=== PATIENT | female | born 1995 | race Two or more races ===

== ENCOUNTER 2020-03-06 15:15 | Observation (INO) | payer MEDICAID, SELFPAY ==
[2020-03-05] MEDS: LACTATED RINGERS 1,000 ML IV SCH (15:55)
[~2020-03-06] VITALS: Ht 157.5 cm; Wt 104.3 kg
[2020-03-06] MEDS ORDERED: PNV91TAB10 PO (15:35)
[2020-03-06 16:19] LABS: BASOPHILS % (AUTO) 0.2 % (0.0-2.0); EOSINOPHILS % (AUTO) 0.2 % (0.0-4.0); HEMATOCRIT 36.3 % (36-48); HEMOGLOBIN 11.8 g/dL (12.0-16.0); LYMPHOCYTES # (AUTO) 2.7 K/uL (2.5-16.5); MEAN CORPUSCULAR HEMOGLOBIN 26 pg (27-31); MEAN CORPUSCULAR HGB CONC 33 g/dL (33-37); MEAN CORPUSCULAR VOLUME 78.2 fL (80-94); MONOCYTES # (AUTO) 0.6 K/uL (0.8-1.0); MONOCYTES % (AUTO) 5.7 % (1.7-9.3); NEUTROPHILS # (AUTO) 7.5 K/uL (1.8-7.7); NEUTROPHILS % (AUTO) 68.9 % (42.2-75.2); PLATELET COUNT (AUTO) 179 K/uL (140-450); RED BLOOD CELL COUNT(AUTO) 4.64 MIL/uL (4.20-5.40); RED CELL DISTRIBUTION WIDTH 16.4 % (11.6-13.7); WHITE BLOOD COUNT (AUTO) 10.9 K/uL (4.8-10.8)
[2020-03-06 16:43] LABS: ALBUMIN 2.8 g/dL (3.4-5.0); ANION GAP 13.7 (8-16); CARBON DIOXIDE 22.3 mmol/L (21-32); CREATININE 0.6 mg/dL (0.6-1.3); THYROID STIMULATING HORMONE 1.15 uIU/mL (0.34-3.74); TOTAL BILIRUBIN 0.3 mg/dL (0.0-1.0)
[2020-03-06] MEDS: LACTATED RINGERS 1,000 ML IV SCH (16:45)
[2020-03-06 19:01] LABS: APPEARANCE,URINE HAZY (CLEAR); BILIRUBIN,URINE NEGATIVE (NEGATIVE); BLOOD, URINE NEGATIVE (NEGATIVE); COLOR,URINE YELLOW (YELLOW); LEUKOCYTE ESTERASE ,URINE NEGATIVE (NEGATIVE); NITRITE, URINE NEGATIVE (NEGATIVE); PH,URINE 6.5 (5.0-9.0); UGLUCOSE NEGATIVE (NEGATIVE)
== END 2020-03-06 20:10 | disposition home or self-care (01) ==
LOC: MLD 15:15
PROVIDERS: ADMIT Obstetrics & Gynecology; ATTEND Obstetrics & Gynecology
DX: O26.893 Other specified pregnancy related conditions, third trimester (principal); Z20.828 Contact with and (suspected) exposure to other viral communicable diseases; R42 Dizziness and giddiness; O21.2 Late vomiting of pregnancy; R51.9 Headache, unspecified; O26.813 Pregnancy related exhaustion and fatigue, third trimester; O34.219 Maternal care for unspecified type scar from previous cesarean delivery; O32.1XX0 Maternal care for breech presentation, not applicable or unspecified; O24.410 Gestational diabetes mellitus in pregnancy, diet controlled; Z3A.33 33 weeks gestation of pregnancy
CPT/HCPCS: 36415; 59025; 80053; 81003; 84443; 85025; 87426; 96360; 96361; G0378; J7120

== ENCOUNTER 2020-04-02 13:50 | Outpatient (CLI) | payer MEDICAID, SELFPAY ==
[~2020-04-02 13:50] MED LIST: PNV91TAB10 PO
== END 2020-04-02 23:59 | disposition home or self-care (01) ==
LOC: MLB 13:50 → EDSTATUS 04-07 14:06
PROVIDERS: ATTEND Obstetrics & Gynecology
DX: Z20.828 Contact with and (suspected) exposure to other viral communicable diseases (principal)
CPT/HCPCS: U0003

== ENCOUNTER 2020-04-06 22:40 | Inpatient (IN) | payer MEDICAID, SELFPAY ==
[~2020-04-06] VITALS: Ht 157.5 cm; Wt 105.2 kg
[2020-04-06] MEDS ORDERED: CITRIC ACID/SODIUM CITRATE 30 ML UDC PO SCH (23:05)
[2020-04-06 23:28] VITALS: BP 121/62
[2020-04-06 23:36] LABS: APPEARANCE,URINE CLOUDY (CLEAR); BILIRUBIN,URINE NEGATIVE (NEGATIVE); BLOOD, URINE NEGATIVE (NEGATIVE); COLOR,URINE YELLOW (YELLOW); LEUKOCYTE ESTERASE ,URINE NEGATIVE (NEGATIVE); NITRITE, URINE NEGATIVE (NEGATIVE); UGLUCOSE NEGATIVE (NEGATIVE)
[2020-04-06 23:39] LABS: BASOPHILS # (AUTO) 0.1 K/uL (0.00-0.22); BASOPHILS % (AUTO) 0.6 % (0.0-2.0); EOSINOPHILS % (AUTO) 0.4 % (0.0-4.0); HEMOGLOBIN 11.4 g/dL (12.0-16.0); LYMPHOCYTES # (AUTO) 2.6 K/uL (2.5-16.5); LYMPHOCYTES % (AUTO) 26.5 % (20.5-51.1); MEAN CORPUSCULAR HEMOGLOBIN 25 pg (27-31); MEAN CORPUSCULAR HGB CONC 33 g/dL (33-37); MEAN CORPUSCULAR VOLUME 76.9 fL (80-94); MONOCYTES # (AUTO) 0.4 K/uL (0.8-1.0); MONOCYTES % (AUTO) 4.4 % (1.7-9.3); NEUTROPHILS # (AUTO) 6.6 K/uL (1.8-7.7); NEUTROPHILS % (AUTO) 68.1 % (42.2-75.2); PLATELET COUNT (AUTO) 157 K/uL (140-450); RED BLOOD CELL COUNT(AUTO) 4.55 MIL/uL (4.20-5.40); RED CELL DISTRIBUTION WIDTH 16.9 % (11.6-13.7); WHITE BLOOD COUNT (AUTO) 9.7 K/uL (4.8-10.8)
[2020-04-06 23:49] LABS: ALBUMIN 2.4 g/dL (3.4-5.0); ANION GAP 19.7 (8-16); CARBON DIOXIDE 19.2 mmol/L (21-32); CREATININE 0.8 mg/dL (0.6-1.3); POTASSIUM 3.9 mmol/L (3.5-5.1); TOTAL BILIRUBIN 0.2 mg/dL (0.0-1.0)
[2020-04-06] MEDS: LACTATED RINGERS 1,000 ML IV SCH (23:52)
[2020-04-07 00:04] LABS: CALCIUM OXALATE CRYSTALS,UR 0-2 /HPF (None Seen); RBC,URINE 0-5 /HPF (0-5)
[2020-04-07] MEDS ORDERED: ceFAZolin 1,000 MG VIAL ONE (05:56)
[2020-04-07] MEDS: LACTATED RINGERS 1,000 ML IV SCH (05:58)
[2020-04-07] MEDS ORDERED: CITRIC ACID/SODIUM CITRATE 30 ML UDC ONE (06:56)
[2020-04-07] MEDS ORDERED: fentaNYL citrate 0.05 MG/ML VIAL ONE ×2 (07:03→07:42)
[2020-04-07] MEDS ORDERED: MIDAZOLAM 2 MG/2 ML VIAL ONE ×2 (07:04→07:42)
[2020-04-07] MEDS ORDERED: MORPHINE PRES FREE 10 MG/10 ML AMP IV ONE ×2 (07:04→07:42)
[2020-04-07] MEDS ORDERED: BLOOD GLUCOSE MONITORING 1 DEV DEV FS ONE (07:30)
[2020-04-07] MEDS ORDERED: diphenhydrAMINE 50 MG/ML VIAL IVP PRN ×2 (07:30→08:30)
[2020-04-07] MEDS ORDERED: ONDANSETRON 4 MG/2 ML VIAL IVP PRN ×2 (07:30→08:30)
[2020-04-07] MEDS ORDERED: OXYTOCIN 20 UNITS in LACTATED RINGERS 1,000 ML IV SCH ×2 (07:30→17:05)
[2020-04-07] MEDS ORDERED: MEPERIDINE 25 MG/ML SYR IVP PRN (07:30)
[2020-04-07] MEDS ORDERED: fentaNYL citrate 0.05 MG/ML VIAL IVP PRN (07:30)
[2020-04-07] MEDS ORDERED: ONDANSETRON 4 MG/2 ML VIAL ONE (07:42)
[2020-04-07] MEDS ORDERED: DEXAMETHASONE 4 MG/ML VIAL ONE (07:42)
[2020-04-07] MEDS ORDERED: METOCLOPRAMIDE 10 MG/2 ML INJ VIAL ONE (07:42)
[2020-04-07] MEDS ORDERED: PHENYLEPHRINE 10 MG/ML VIAL ONE (07:42)
[2020-04-07] MEDS ORDERED: NALOXONE 0.4 MG/ML VIAL IVP PRN ×2 (08:30)
[2020-04-07] MEDS ORDERED: NALBUPHINE 10 MG/ML AMP IVP PRN (08:30)
[2020-04-07] MEDS ORDERED: OXYTOCIN 20 UNITS/LR PREMIX 1,000 ML IV ONE ×2 (09:00→17:52)
--- NOTE | 2020-04-07 09:02 | NUR ---
PATIENT HAS BEEN SCREENED AND CATEGORIZED LOW NUTRITION RISK. PATIENT WILL BE SEEN WITHIN 7 DAYS OF ADMISSION. 04/13/[address]
[2020-04-07] MEDS: KETOROLAC 30 MG/ML VIAL IM/IVP SCH ×2 (13:36→19:38)
[2020-04-07] MEDS ORDERED: oxyCODONE/APAP 5/325 MG 1 TAB TAB PO PRN ×2 (17:05)
[2020-04-07] MEDS ORDERED: MEASLES, MUMPS, AND RUBELLA 1 VIAL SQVAC PRN (17:05)
[2020-04-07] MEDS ORDERED: METHYLERGONOVINE 0.2 MG/ML AMP IM PRN (17:05)
[2020-04-07] MEDS ORDERED: SIMETHICONE 80 MG TAB.CHEW PO PRN (17:05)
[2020-04-07] MEDS ORDERED: TEMAZEPAM 15 MG CAP PO PRN (17:05)
[2020-04-07] MEDS: DOCUSATE SOD/SENNA 50/8.6 MG 1 TAB PO SCH (21:00)
[2020-04-08] MEDS: KETOROLAC 30 MG/ML VIAL IM/IVP SCH (01:40)
[2020-04-08] MEDS ORDERED: OXYTOCIN 20 UNITS/LR PREMIX 1,000 ML IV ONE (01:49)
[2020-04-08] MEDS ORDERED: HYDROmorphone 1 MG/ML AMP IVP PRN (02:00)
[2020-04-08 06:01] LABS: BASOPHILS % (AUTO) 0.3 % (0.0-2.0); EOSINOPHILS % (AUTO) 0.4 % (0.0-4.0); HEMATOCRIT 29.3 % (36-48); HEMOGLOBIN 9.4 g/dL (12.0-16.0); LYMPHOCYTES % (AUTO) 26.6 % (20.5-51.1); MEAN CORPUSCULAR HEMOGLOBIN 25 pg (27-31); MEAN CORPUSCULAR HGB CONC 32 g/dL (33-37); MONOCYTES # (AUTO) 0.7 K/uL (0.8-1.0); MONOCYTES % (AUTO) 6.6 % (1.7-9.3); NEUTROPHILS # (AUTO) 7.4 K/uL (1.8-7.7); NEUTROPHILS % (AUTO) 66.1 % (42.2-75.2); PLATELET COUNT (AUTO) 136 K/uL (140-450); RED BLOOD CELL COUNT(AUTO) 3.75 MIL/uL (4.20-5.40); RED CELL DISTRIBUTION WIDTH 16.8 % (11.6-13.7); WHITE BLOOD COUNT (AUTO) 11.1 K/uL (4.8-10.8)
[2020-04-08] MEDS: IBUPROFEN 600 MG TAB PO PRN ×2 (08:18→18:07)
[2020-04-08] MEDS: DOCUSATE SOD/SENNA 50/8.6 MG 1 TAB PO SCH (20:35)
[2020-04-08] MEDS ORDERED: CAMERA MC ONE (21:56)
[2020-04-08] MEDS ORDERED: FLU VACCINE QS2020-21 0.5 ML SYR IMVAC PRN (22:05)
[2020-04-09] MEDS: IBUPROFEN 600 MG TAB PO PRN (09:27)
== END 2020-04-09 13:15 | disposition home or self-care (01) | DRG 540 ==
LOC: MLD 22:40 → OBSVTOIN 04-07 00:32 → MFCC 04-07 09:11
PROVIDERS: ADMIT Obstetrics & Gynecology; ATTEND Obstetrics & Gynecology
PROC: 3E0234Z Introduction of Serum, Toxoid and Vaccine into Muscle, Percutaneous Approach (ICD-10-PCS; 2020-04-07)
PROC: 3E0134Z Introduction of Serum, Toxoid and Vaccine into Subcutaneous Tissue, Percutaneous Approach (ICD-10-PCS; 2020-04-07)
PROC: 10D00Z1 Extraction of Products of Conception, Low, Open Approach (ICD-10-PCS; principal; 2020-04-07 07:30)
DX: O24.420 Gestational diabetes mellitus in childbirth, diet controlled (principal); O69.81X0 Labor and delivery complicated by cord around neck, without compression, not applicable or unspecified; O34.211 Maternal care for low transverse scar from previous cesarean delivery; Z37.0 Single live birth; Z3A.38 38 weeks gestation of pregnancy; Z23 Encounter for immunization
CPT/HCPCS: G0378 ×2; 36415; 51702; 80053; 81001; 82948; 85025; 86592; 86886; 86900; 86901; 87081; 87086; 87653-90; 90707; 90715; J0690; J1100; J1885; J2250; J2270; J2370; J2405; J2590; J2765; J3010; J7120